=== PATIENT | female | born 1955 ===

== ENCOUNTER 2023-04-08 11:33 | Inpatient (IN) | payer OTHER ==
[~2023-04-08] VITALS: Ht 160 cm; Wt 90.7 kg
[2023-04-09] MEDS ORDERED: SYNTHROID125 MCG PO (15:17)
[2023-04-09] MEDS ORDERED: JARDIANCE10 MG PO (15:17)
[2023-04-09] MEDS ORDERED: ZETIA10 MG PO ×2 (15:18→15:19)
[2023-04-09] MEDS ORDERED: TOPROL XL25 M1 PO (15:18)
[2023-04-09] MEDS ORDERED: CRESTOR20 MG PO (15:19)
[2023-04-09] MEDS ORDERED: PLAVIX75 MG PO (15:19)
[2023-04-09] MEDS ORDERED: ATACAND16 MG PO (15:20)
[2023-04-13] MEDS ORDERED: SYMBICORT 16010.2 GM (13:06)
[2023-04-16] MEDS ORDERED: XARELTO10 MG PO (08:47)
[2023-04-16] MEDS ORDERED: TOPROL XL50 M1 PO (08:47)
[2023-04-16] MEDS ORDERED: INTEGRA PLUS C1 EACH PO (08:47)
[2023-04-16] MEDS ORDERED: PERCOCET 5-3251 EACH PO (08:47)
[2023-04-16] MEDS ORDERED: Septra Ds Tablet PO (08:47)
== END 2023-04-16 13:37 | DRG 470 ==
LOC: O/R 04-13 06:00 → SURG 04-13 08:25 → SURH 04-13 13:34 → SURG 04-13 16:00 → SURH 04-15 18:29
PROVIDERS: ADMIT Orthopaedic Surgery Sports Medicine; ATTEND Orthopaedic Surgery Sports Medicine
PROC: 0SRD0J9 Replacement of Left Knee Joint with Synthetic Substitute, Cemented, Open Approach (ICD-10-PCS; principal; 2023-04-13 08:25)
DX: M17.12 Unilateral primary osteoarthritis, left knee (principal); G47.33 Obstructive sleep apnea (adult) (pediatric); I10 Essential (primary) hypertension; E11.9 Type 2 diabetes mellitus without complications; Z79.4 Long term (current) use of insulin; Z96.652 Presence of left artificial knee joint; Z20.822 Contact with and (suspected) exposure to COVID-19; E03.9 Hypothyroidism, unspecified